=== PATIENT | female | born 2005 | race Caucasian/White ===

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

== ENCOUNTER → 2024-10-24 | Outpatient (CLI) | payer OTHER | END | disposition home or self-care (01) | LOC: US 08:30 | PROVIDERS: ATTEND Nurse Practitioner Women's Health | DX: R92.322 Mammographic fibroglandular density, left breast (principal); N64.89 Other specified disorders of breast; N63.0 Unspecified lump in unspecified breast; N64.4 Mastodynia ==